=== PATIENT | female | born 1990 | race Hispanic/Latino ===

== ENCOUNTER 2018-07-14 11:09 | Emergency (ER) | payer SELFPAY ==
[~2018-07-14] VITALS: Ht 165.1 cm; Wt 132.0 kg
[~2018-07-14 11:09] MED LIST: AMOXICILLIN250 MG PO; BENTYL10 MG PO; CLARITHROMYCIN500 MG PO; NORCO 7.5-3251 EACH PO; PANTOPRAZOLE SO40 MG PO; ZOFRAN ODT4 MG PO
--- NOTE | 2018-07-14 14:24 | NUR ---
BELLE OSPINA IN TO [facility] PT IN TREATMENT ROOM.
[2018-07-14] MEDS ORDERED: KETOROLAC TROMETHAMINE 60 MG/2 ML VIAL IM ONE (15:00)
[2018-07-14] MEDS ORDERED: CYCLOBENZAPRINE HCL 10 MG TAB PO ONE (15:00)
[2018-07-14] MEDS ORDERED: DEXAMETHASONE SOD PHOS 10 MG/1 ML VIAL IM ONE (15:00)
[2018-07-14 15:03] LABS: STREPTOCOCCUS GRP A ANTIGEN NEGATIVE (NEGATIVE)
[2018-07-14 15:18] LABS: INFLUENZAE A&B ANTIGEN (RAPID) POSITIVE FLU B (NEGATIVE)
[2018-07-14 16:48] LABS: BILIRUBIN,URINE NEGATIVE (NEGATIVE); CLARITY,URINE SL CLOUDY (CLEAR); COLOR,URINE YELLOW (YELLOW); KETONES,URINE NEGATIVE (NEGATIVE); LEUKOCYTE ESTERASE ,URINE 1+ (NEGATIVE); NITRITE,URINE NEGATIVE (NEGATIVE); PREGNANCY TEST, URINE NEGATIVE (NEGATIVE); PROTEIN,URINE DIPSTICK NEGATIVE (NEGATIVE); URINE UROBILINOGEN 0.2 mg/dL (0.2 - 1)
[2018-07-14 17:03] LABS: EPITHELIAL CELLS,URINE MANY /LPF
[2018-07-14 17:05] LABS: BACTERIA,URINE FEW /HPF
[2018-07-14] MEDS ORDERED: KETOROLAC TROMETHAMINE 60 MG/2 ML VIAL ONE (18:31)
[2018-07-14] MEDS ORDERED: DEXAMETHASONE SOD PHOS 10 MG/1 ML VIAL ONE (18:32)
[2018-07-14] MEDS ORDERED: ACETAMINOPHEN 325 MG TAB ONE (18:32)
--- NOTE | 2018-07-14 18:32 | Diagnostic Imaging Report ---
EXAMINATION: CHEST 2 VIEWS INDICATION: Cough, flulike symptoms ^ORDER PLACED BY ^[id number] ^1720 ^Y COMPARISON: None FINDINGS: PA and lateral views TUBES and LINES: None. LUNGS: Lungs are well inflated. There is no evidence of pneumonia or pulmonary edema. PLEURA: No pleural effusion or pneumothorax. HEART AND MEDIASTINUM: The cardiomediastinal silhouette is unremarkable.. BONES AND SOFT TISSUES: No focal osseous lesions. Soft tissues are unremarkable. UPPER ABDOMEN: No free air under the diaphragm. IMPRESSION: No acute thoracic abnormality. Signed by: Dr. Sayda Lauren MD on 07/14/2018 6:28 PM
[2018-07-14] MEDS ORDERED: ACETAMINOPHEN 325 MG TAB PO NR (18:45)
--- NOTE | 2018-07-14 19:26 | Diagnostic Imaging Report ---
Left rib multiple views CPT code: 80512 History: Cough, flulike symptoms Comparison: None. Findings: The rib structures on the left appear intact. There is no evidence of acute rib fracture or dislocation identified. No focal osseous lesions. Chest PA single view appears unremarkable. IMPRESSION: No rib fracture or dislocation. Thank you for your referral. Signed by: Dr. Sayda Lauren MD on 07/14/2018 7:23 PM
[2018-07-15 04:42] VITALS: BP 128/82
== END 2018-07-14 19:51 | disposition home or self-care (01) ==
LOC: ER 11:09
DX: R05 Cough (principal); R07.89 Other chest pain; J09.X2 Influenza due to identified novel influenza A virus with other respiratory manifestations; J20.8 Acute bronchitis due to other specified organisms
CPT/HCPCS: 71046; 71101; 81001; 81025; 83518; 87070; 87086; 87400; 99284; J1100; J1885

== ENCOUNTER 2020-05-24 11:38 | Emergency (ER) | payer SELFPAY ==
[~2020-05-24] VITALS: Ht 165.1 cm; Wt 102.1 kg
== END 2020-05-24 12:06 | disposition home or self-care (01) ==
LOC: ER 12:05
DX: J02.0 Streptococcal pharyngitis (principal); R50.9 Fever, unspecified; R05 Cough; H92.01 Otalgia, right ear; Z98.84 Bariatric surgery status; D72.819 Decreased white blood cell count, unspecified; F17.210 Nicotine dependence, cigarettes, uncomplicated
CPT/HCPCS: 99283

== ENCOUNTER 2022-08-11 22:20 | Emergency (ER) | payer SELFPAY ==
[~2022-08-11] VITALS: Ht 165.1 cm; Wt 102.1 kg
[2022-08-11] MEDS ORDERED: BENZONATATE 100 MG CAP PO STA (23:00)
[2022-08-11] MEDS ORDERED: KETOROLAC TROMETHAMINE 30 MG/ML VIAL IM STA (23:00)
[2022-08-12] MEDS ORDERED: BENZONATATE100 MG PO (00:33)
== END 2022-08-12 00:36 | disposition home or self-care (01) ==
LOC: ER 22:52
DX: R05.9 Cough, unspecified (principal); R09.89 Other specified symptoms and signs involving the circulatory and respiratory systems; Z20.822 Contact with and (suspected) exposure to COVID-19; Z98.84 Bariatric surgery status
CPT/HCPCS: 0223U; 36415; 71046; 87400; 93005; 99283; J1885

== ENCOUNTER 2024-12-30 16:31 | Emergency (ER) | payer OTHER ==
[~2024-12-30] VITALS: Ht 167.6 cm; Wt 99.8 kg
[~2024-12-30 16:31] MED LIST changes: +BENZONATATE100 MG PO; +CEFDINIR300 MG PO
[2024-12-30] MEDS ORDERED: MEDROL4 M2 PO (19:02)
[2024-12-30 19:11] VITALS: PULSE 75; RESP 17; TEMP 98.1
[2024-12-30] MEDS: METHYLPREDNISOLONE SOD SUCC 125 MG/2ML VIAL IM ONE (19:16)
[2024-12-30] MEDS: DIPHENHYDRAMINE HCL 25 MG CAP PO ONE (19:16)
[2024-12-30] MEDS: FAMOTIDINE 20 MG TAB PO ONE (19:16)
[2024-12-30 19:56] VITALS: BP 138/98; PULSE 72; RESP 16; TEMP 98.1; O2SAT 100
== END 2024-12-30 19:59 | disposition home or self-care (01) ==
LOC: ER 18:48
DX: L29.9 Pruritus, unspecified (principal); L50.9 Urticaria, unspecified; T37.8X5A Adverse effect of other specified systemic anti-infectives and antiparasitics, initial encounter; Z98.84 Bariatric surgery status; F17.210 Nicotine dependence, cigarettes, uncomplicated
CPT/HCPCS: 99283; J2919

== ENCOUNTER 2025-01-13 17:17 | Emergency (ER) | payer OTHER ==
[~2025-01-13] VITALS: Ht 167.6 cm; Wt 99.8 kg
[~2025-01-13 17:17] MED LIST changes: +MEDROL4 M2 PO
[2025-01-13 19:08] VITALS: PULSE 77; RESP 19; TEMP 98.4
[2025-01-13 20:07] LABS: CORONAVIRUS COVID-19 AG NEGATIVE (NEGATIVE)
[2025-01-13] MEDS: ONDANSETRON HCL 4 MG ORAL DISINTEGRATING TAB PO STA (20:26)
[2025-01-13] MEDS ORDERED: KETOROLAC TROME10 MG PO (21:23)
[2025-01-13] MEDS ORDERED: AMOX TR-K CLV1 EAC2 PO (21:23)
[2025-01-13] MEDS: KETOROLAC TROMETHAMINE 30 MG/ML VIAL IM STA (21:29)
[2025-01-13] MEDS: METOCLOPRAMIDE HCL 10 MG/2ML VIAL IM STA (21:29)
[2025-01-13 21:46] VITALS: BP 111/79; PULSE 69; RESP 17; TEMP 98.5; O2SAT 100
== END 2025-01-13 21:50 | disposition home or self-care (01) ==
LOC: ER 17:40
DX: R51.9 Headache, unspecified (principal); R04.0 Epistaxis; R11.2 Nausea with vomiting, unspecified; E66.9 Obesity, unspecified; Z11.52 Encounter for screening for COVID-19; Z98.84 Bariatric surgery status
CPT/HCPCS: 70450; 87426; 99283; J1885; J2765; Q0162